=== PATIENT | male | born 1950 | race Caucasian/White ===

== ENCOUNTER 2017-02-18 11:55 | Inpatient (IN) ==
[2017-02-18] MEDS ORDERED: NS 500 ML IV ONE (13:21)
--- NOTE | 2017-02-18 13:52 | Diag Imaging Result Doc PS360 ---
EXAM: FOOT COMPLETE LEFT INDICATION: chronic infection TECHNIQUE: Left foot radiograph, three views. COMPARISON: None available. FINDINGS: There has been amputation of the second and third toes at the MTP joints as well as amputation of the tip of the great toe. There is soft tissue emphysema indicating infection overlying the head of the third metatarsal and between the third and fourth metatarsal heads. There is irregularity at the tip of the fourth and fifth toes that has a more chronic appearance. No definite acute erosion can be identified to indicate acute osteomyelitis by plain radiograph. However, consider nuclear medicine bone scan or MRI if there is high clinical suspicion for osteomyelitis. Otherwise, there are calcaneal bone spurs and small osteophytes at the dorsum of the foot. There is soft tissue edema at the dorsum of the foot. IMPRESSION: Soft tissue edema with subcutaneous gas involving the forefoot as described indicating cellulitis. No definite radiographic evidence of osteomyelitis is appreciated. However, there are no prior studies available for comparison. Please see above discussion. Electronically signed by Zachary Patten 02/18/2017 1:50 PM
[2017-02-18] MEDS ORDERED: ZOSYN 3.375 GM/NS 3.375 GM/50 ML IVPB IV ONE (14:06)
--- NOTE | 2017-02-18 15:04 | PROVIDER DOCUMENTATION ---
This chart was entered by Austin Granda Scribmukul, acting as scribe for Aline Caal MD. HPI-Rash/Wound/ReCheck - General Chief Complaint: Post Op Complaint Stated Complaint: LEFT FOOT /TOE PAIN,DIABETIC Time Seen by Provider: 02/18/17 13:10 Source: patient Allergies/Adverse Reactions: Allergies Allergy/AdvReac Type Severity Reaction Status Date / Time No Known Allergies Allergy Verified 02/18/17 14:35 Home Medications: Home Medication List Medication Instructions Recorded Confirmed Last Taken Type Carvedilol 5 mg PO DAILY 02/06/17 02/18/17 02/18/17 07:30 History Insulin Detemir [Levemir] 30 unit SUBQ BID 02/06/17 02/18/17 02/18/17 08:00 History LISINOpril [Prinivil] 20 mg PO DAILY 02/06/17 02/18/17 02/17/17 19:00 History LOVAstatin [Mevacor] 20 mg PO DAILY 02/06/17 02/18/17 02/17/17 19:00 History Metformin [Glucophage] 500 mg PO BID CC 02/06/17 02/18/17 02/18/17 07:30 History - History of Present Illness-Dermatology Nature of Presenting Problem: Patient is a 66 y/o M that presents with wound to left foot( 2nd and 3rd toes). patient had amputation to those toes in December, since he has been on antibiotics for infection. Over the past few days he has ran a fever and has had confusion/ ams at times. He reports bleeding to wound. Reports swelling and redness to foot. Location: reports: lower extremity (left foot) Quality: reports: painful Severity: reports: moderate Onset/Duration: reports: gradual, other (one month) Timing: reports: still present, constant Context/Associated Symptoms: reports: incised wound, fever Locality of Occurance: Home Similar Symptoms Previously?: Yes Recently seen or treated by another doctor?: Yes Review of Systems - Adult - REVIEW OF SYSTEMS - ADULT Constitutional: reports: chills, fever Eyes: reports: no symptoms reported Ears, Nose, Mouth & Throat: denies: ear discharge, ear pain, sinus problem, throat pain, throat swelling Cardiovascular: denies: chest pain, palpitations, syncope Respiratory: denies: cough, shortness of breath, wheezing Gastrointestinal: reports: no symptoms reported Genitourinary: denies: dysuria, frequency, hematuria Musculoskeletal: denies: back pain, neck pain Integumentary: reports: skin sores/ulcer. denies: itching Neurological: reports: other (AMS). denies: dizziness/vertigo, headache/ migraines Psychiatric: reports: no symptoms reported Endocrine: reports: no symptoms reported Hematologic/Lymphatic: reports: no symptoms reported Allergic/Immunologic: reports: no symptoms reported All Other Systems: Reviewed and Negative Past History - Adult - PAST MEDICAL HISTORY-ADULT Review of Records: reports: Old Records Reviewed, Nursing Assessment Review, Medications Reviewed Cardiovascular: reports: CAD, HTN Neurological: reports: other (neuropathy) Endocrine/Immune: reports: Diabetes - PRIOR SURGERIES/PROCEDURES Surgical/Procedure History: reports: CABG, hernia repair, other (RIGHT BKA, left 2nd and 3rd toe amputation) - IMMUNIZATION STATUS Childhood Immunizations: See Nurse Assessment Flu Vaccine: See Nurse Assessment - FAMILY HISTORY Family History: reviewed, not pertinent - SOCIAL HISTORY Smoking: non-smoker Living Situation: family Physical Exam-General - PHYSICAL EXAM-ADULT Initial Vital Signs Reviewed: Yes - CONSTITUTIONAL General Appearance: alert, mild distress - EYES Eyes: PERRL/EOMI, pink conjunctivae - HEAD, EARS, NOSE, MOUTH & THROAT HENMT: normocephalic/atraumatic, moist mucous membranes, normal ENT inspection - NECK Neck: full range of motion, normal inspection - RESPIRATORY Respiratory: lungs clear, normal breath sounds, no respiratory distress, no accessory muscle use - CARDIOVASCULAR Cardiovascular: regular rate, rhythm, no edema, no murmur - MUSCULOSKELETAL Extremity: pelvis stable, erythema (left foot up to ankle), other (right BKA). negative: swelling - SKIN Integumentary: other (left foot redness, open wound to base of 2nd toe on left citlaly plantar side with necrotic tissues noted to it. foul smell coming for wound possible gangrene) - NEUROLOGIC Neurologic: grossly normal, no motor/sensory deficits - PSYCHIATRIC Psych/Mental Status: normal mood/affect, normal thought content, normal thought process, oriented x 3 Progress - PLAN OF CARE/RESULTS Progress/Plan/Lab Results: Vital Signs - 8 hr 02/18/17 12:18 Temperature 100 F H Pulse Rate 85 Respiratory Rate 18 Blood Pressure 164/64 O2 Sat by Pulse Oximetry 99 Orders Category Date Time Status FSBS [Finger Stick Blood Sugar (ED)] DIRECTED Care 02/18/17 13:18 Active IV Insertion ORDERED Care 02/18/17 13:21 Active FOOT COMPLETE LEFT [RAD] Stat Exams 02/18/17 13:22 Completed BLOOD CULTURE [BLDCUL] Stat Lab 02/18/17 13:20 Uncollected CBC WITH ELECTRONIC DIFF [HEME] Stat Lab 02/18/17 13:19 Uncollected CMP [COMPREHENSIVE METABOLIC PANEL] [CHEM] Stat Lab 02/18/17 13:19 Uncollected WOUND CULTURE INC GRAM STAIN [RM] Stat Lab 02/18/17 13:20 Uncollected 0.9% Sodium Chloride Inj [Ns] 500 ml Med 02/18/17 13:21 Discontinued IV 999 mls/hr Piperacil/Tazobact 3.375 gm/Ns [Zosyn 3.375 gm/Ns] Med 02/18/17 14:06 Discontinued 3.375 gm in 50 ml IV NOW - XRAY 1 XRAY: Left XRAY Study: Foot Impression: Abnormal XRAY Interpretation: soft tiss edema with SQ gas involving to forefoot - CONSULTS/PCP/HOSPITALIST Notification #1 *Consult/PCP/Hospitalist*: Dr.T Mcclain Time Discussed: 14:59 Reason/Comments: possible gangrene foot Consult Disposition: Will see in ED Departure - Departure Time of Disposition Decision: 15:02 DIAGNOSIS: Gangrene of left foot Disposition: ADMITTED INPATIENT 09 Certified Medical Emergency: Emergent Condition: Stable Referrals and Follow-Ups: Jorge Singer [Primary Care Provider] - - Critical Care Note This patient required my direct & personal management of CC.: No This chart was documented by the indicated scribe, (Austin Granda, Scribe) and accurately reflects the services I performed and decisions made by me, Aline Caal MD, as attested by the provider's signature.
[2017-02-18 15:20] LABS: MANUAL DIFF NEEDED? NO
[2017-02-18 15:27] LABS: BASO% 0.2 % (0.0-0.8); EOS# 0.04 X1000 (0.0-0.7); EOS% 0.3 % (0.0-10.0); HEMATOCRIT 36.8 % (42.0-52.0); HEMOGLOBIN 12.4 g/dL (14.0-18.0); IMM GRAN# 0.03 X1000 (0.0-0.04); IMM GRAN% 0.2 % (0.0-0.5); LYMPH# 1.14 X1000 (1.2-3.4); LYMPH% 9.4 % (20.5-51.1); MCH 27.1 PG (27-31); MCHC 33.7 g/dL (33-37); MCV 80.3 FL (81-99); MONO# 0.86 X1000 (0.11-0.59); MONO% 7.1 % (1.7-9.3); MPV 8.8 FL (7.4-10.4); NEUT% 82.8 % (42.2-75.2); PLT 484 X1000 (130-400); RBC 4.58 XMIL (4.7-6.1)
[2017-02-18 15:43] LABS: URINE MICRO REVIEW NEEDED? NO; URINE SOURCE VOIDED
[2017-02-18 15:48] LABS: BILIRUBIN URINE NEGATIVE (NEGATIVE); BLOOD URINE NEGATIVE (NEGATIVE); COLOR YELLOW; GLUCOSE URINE 500 mg/dL (NEGATIVE); LEUKOCYTES URINE NEGATIVE (NEGATIVE); NITRITE URINE NEGATIVE (NEGATIVE); PROTEIN URINE 50 mg/dL (NEGATIVE); SP GRAVITY URINE 1.019; TURBIDITY URINE CLEAR (CLEAR); UR EPITHELIAL CELLS <10 /HPF (<10); URINE BACTERIA NEGATIVE /HPF; URINE RBC <10 /HPF (<10); URINE WBC <10 /HPF (<10); UROBILINOGEN URINE NORMAL (NORMAL)
[2017-02-18 15:50] LABS: AGAP 16; ALBUMIN 3.6 g/dL (3.5-5.0); ALKALINE PHOSPHATASE 478 U/L (32-122); BUN 15 mg/dL (8-22); CALCIUM 9.5 mg/dL (8.8-10.2); CHLORIDE 90 mmol/L (98-107); COSMO 265; GOT 93 U/L (10-34); GPT 127 U/L (10-44); POTASSIUM 4.7 mmol/L (3.5-5.1); SODIUM 128 mmol/L (136-145); TCO2 22 mmol/L (25-35); TOTAL BILIRUBIN 0.34 mg/dL (0.20-1.00); TOTAL PROTEIN 8.3 g/dL (6.3-8.3)
[2017-02-18] MEDS ORDERED: NS 1,000 ML IV ONE (16:29)
[2017-02-18] MEDS: DILAUDID IV ONE ×2 (16:29→16:49)
[2017-02-18] MEDS ORDERED: NS 1,000 ML ONE (16:44)
[2017-02-18] MEDS ORDERED: DIPRIVAN 1% ONE (18:50)
[2017-02-18] MEDS ORDERED: NS 1,000 ML IV SCH ×2 (19:25→20:08)
[2017-02-18] MEDS: DILAUDID ONE ×2 (19:36→19:45)
[2017-02-18 19:57] LABS: HEMOGLOBIN A1C 8.6 % (4.8-6.0)
--- NOTE | 2017-02-18 20:58 | HISTORY AND PHYSICAL ---
REASON FOR ADMISSION: Left foot pain, swelling and discharge. REFERRING PHYSICIAN: Dr. Gunnar Mcclain REASON FOR CONSULTATION: For medical management. HISTORY OF PRESENT ILLNESS: Mr. Betito Mahoney is a 66-year-old man with past history of coronary artery disease, peripheral arterial disease, type 2 diabetes, complicated neuropathy, hypertension, hyperlipidemia. Comes in today complaining of a 2-week history of worsening purulent drainage from his left foot, a 2-day history of fever and chills and a 2-day history of left foot swelling. Also complains about 1-2 weeks history of worsening polyuria, polydipsia, but no blurred vision. No polyphagia. He denies any cardiorespiratory complaints. He was seen by Dr. Gunnar Mcclain, general surgeon and we took him to the OR on account of findings noted on the left foot x-ray that showed soft tissue edema with subcutaneous gas involving the forefoot. I just saw him in recovery and he is only complaining of pain in his left foot which has gotten better with some pain medication. He denies any other complaints referable to the GI, , [facility], [facility] at this point in time. No arthralgias. REVIEW OF SYSTEMS: Other than the aforementioned complaints above, he complains of chronic left foot burning neuropathy-type pain. Twelve system review was also done and positive findings are as per above. ALLERGIES: No known allergies. MEDICATIONS: He takes an aspirin a day, Coreg 3.125 mg daily, Levemir 30 units b.i.d., Prinivil 20 mg daily. Mevacor 20 mg daily, metformin 500 mg b.i.d. SURGICAL HISTORY: He has had 5 abdominal hernia surgeries, a CABG, tonsillectomy, right BKA, cholecystectomy, amputation of the left toes of his foot, including further debridement of his left foot. FAMILY HISTORY: Notable for heart disease and type 2 diabetes in first-degree relatives. SOCIAL HISTORY: He does not smoke, drink, or use drugs per his daughter. LABORATORY WORK: Chest x-ray findings noted above and there was no mention of osteomyelitis in the films. Other tests include white count was 12,000, hemoglobin and hematocrit 12 and 36, platelets 484,000, 82% neutrophils. Sodium is 128, anion gap is 16, bicarb 22, BUN 15, creatinine 1.1, glucose 231. A1c 8.6, AST 93, ALT 127. Alkaline phosphatase 478. Urinalysis clean. Lactate 1. PHYSICAL EXAMINATION: VITAL SIGNS: Blood pressure postop is 161/60, heart rate 79, respirations 13, temperature is 100.2 degrees, 96% on room air. GENERAL: He is a middle-aged man who is not in acute distress. He is alert and oriented x3. Normal mood and affect. HEENT: Head is normocephalic, atraumatic. Eyes, BRITNI, EOMI. He is anicteric and not pale. ENT and oropharyngeal exam are grossly normal. There is moist mucosa. No central cyanosis noted. NECK: Supple. No JVD or carotid bruit. No thyromegaly. CHEST: Clear to auscultation. Good air entry both lung paula. CARDIOVASCULAR: First and second heart sounds heard. No gallops, murmurs or rubs. Rhythm is regular. ABDOMEN: Full, soft, nontender. No masses or megaly. Bowel sounds slightly hypoactive. RECTAL: Examination deferred at this time. EXTREMITIES: He has a right BKA. Skin overlying the stump is intact. No breakdown noted. Left lower extremity is heavily dressed. Posterior tibialis pulse is barely palpable, but he has a very good left femoral pulse. There are areas of erythema and warmth in the left chaudhari consistent with cellulitis. Not tender to touch. No edema. Could not visualize the toes because of the dressing. I could not appreciate any pulses on the dorsalis pedis for the same reason. NEUROLOGICAL: No focal deficits noted. SKIN: See above, but otherwise grossly normal. MUSCULOSKELETAL: See above, but grossly normal. ASSESSMENT: 1. Left diabetic foot infection. 2. Coronary artery disease with probable peripheral artery disease. 3. Hypertension. 4. Hyperlipidemia. 5. Type 2 diabetes, uncontrolled with neuropathy. A1c 8.6. PLAN: At this time, I will continue with Lantus and a sliding scale for this patient. He is definitely lacking postprandial control of his blood sugars and will benefit from starting on Januvia or as sulfonylurea when he is discharged to get better sugar control. We will slowly add elevated doses of his Levemir while he is here with a goal to get his a.m. blood sugars at least less than 140. Continue his blood pressure medications as outlined above. I resumed his aspirin due to the fact that he has a significant cardiovascular disease. His lipid panel is abnormal I will strongly recommend changing him from Mevacor to a more potent statin i.e. Lipitor or Crestor. Aggressively hydrate patient to head off any further fluid losses from polyuria secondary to poorly controlled diabetes. I would like to thank Dr. Mcclain for this consult, my colleague who is following. Deep venous thrombosis prophylaxis per Dr. Mcclain. Continue antibiotics i.e. Zosyn and await cultures. cc: MD Jacky Lubin MD Joel Alonzo Powell, Jr, MD
[2017-02-18] MEDS ORDERED: ZOFRAN IV PRN (21:08)
[2017-02-18] MEDS ORDERED: VANCOMYCIN IV PER PHARMACY MISC SCH (21:08)
[2017-02-18] MEDS ORDERED: INSULIN PEN NEEDLES ONE (22:21)
[2017-02-18] MEDS: ASPIRIN PO SCH (22:22)
[2017-02-18] MEDS: HUMALOG SUBQ SCH (22:23)
[2017-02-18] MEDS: COREG PO SCH (22:23)
[2017-02-18] MEDS: LEVEMIR SUBQ SCH (22:24)
[2017-02-18] MEDS: ZOSYN 3.375 GM/NS 3.375 GM/50 ML IVPB IV SCH (22:45)
--- NOTE | 2017-02-18 23:44 | CONSULTATION ---
DATE OF CONSULTATION: 02/18/2017 HISTORY OF PRESENT ILLNESS: This 66-year-old male with poorly controlled diabetes who is known to me from my office who was seen last week. He had an amputation approximately week and half ago in [place] by a surgeon there of his #2 and 3 toes on his left foot. These wounds were closed. He developed some drainage last week with the early development of a wound here. He was on antibiotics but he developed progression some subjective fevers, altered mental status this week prompted his representation. They noted increasing purulent drainage from his foot. Of note he has had a right below-knee amputation. PAST MEDICAL HISTORY: 1. Diabetes. 2. Hypertension. 3. peripheral vascular disease. SURGICAL HISTORY: Right below-knee amputation. SOCIAL HISTORY: History of smoking has quit recently though. No alcohol. FAMILY HISTORY: Negative. REVIEW OF SYSTEMS: Ten point negative except for what is mentioned in HPI. PHYSICAL EXAMINATION: Vital Signs: Temperature is 100, pulse 85, blood pressure 164/64, O2 saturation 99% on room air. General: He is alert, no acute distress. HEENT: No scleral icterus. Cardiovascular: Normal rate, regular rhythm. Pulmonary: No increased work of breathing. Abdomen: Soft, nontender, nondistended. Extremities: Left foot has a partial amputation of his 1st toe and partial amputation of the 2nd and 3rd toe. There is a necrotic wound at the previous amputation site that is draining purulent material. The 4th toe is ecchymotic and is nonfunctional, the 5th toe seems well perfused. There is some cellulitis extending up to level the midfoot but there is no cellulitis of the leg and foot otherwise warm, seems well perfused. Right below-knee prosthetic is in place. Neurologic: He has received some pain medicine but he is alert and oriented at this point. LABS: White count 12, hematocrit 36, platelets 484,000. Creatinine is 1.1, sodium is low at 128, potassium 4.7, chloride 90, CO2 22, bilirubin 0.34, AST, ALT 93, 127, alkaline phosphatase 478, albumin is 3.6. ASSESSMENT AND PLAN: This is a 66-year-old male with poorly controlled diabetes and history of nonhealing wounds of his foot. He has had necrosis requiring toe amputations recently in [place]. He presents now with ongoing necrosis and infection of his previous surgical site. Risks, benefits, alternatives discussed with patient. I have recommended amputation 4th toe with debridement of the midfoot which will likely include some at least partial transmetatarsal amputation of these digits and leave the wound open with the ongoing wound care. He understands that there is possibility of loss of all the toes and a complete transmetatarsal amputation but we are doing this with the goal of preserving his foot. He understands prolonged nature of wound healing and likely require wound VAC and other surgeries in the future. Will obtain formal segmental Doppler exams of his left foot although his foot seems clinically perfused. Will check this while he is inpatient. I recommend admission to medicine service given his electrolyte derangements, hyperglycemia. From my standpoint he has received Zosyn, would recommend addition of vancomycin pending tissue cultures which will obtain today. Will go to the operating room konstantin. cc: Jacky Mcclain MD MTDMichael
[2017-02-19] MEDS: MORPHINE IV PRN ×3 (00:12→18:56)
[2017-02-19] MEDS ORDERED: VANCOMYCIN 2,000 MG in NS 500 ML IV ONE (01:00)
[2017-02-19] MEDS: ZOSYN 3.375 GM/NS 3.375 GM/50 ML IVPB IV SCH ×4 (04:03→21:03)
--- NOTE | 2017-02-19 04:42 | OPERATIVE NOTE ---
PROCEDURE DATE: 02/18/2017 PREOPERATIVE DIAGNOSIS: Infected necrosis of a previous diabetic foot wound of the left foot. POSTOPERATIVE DIAGNOSIS: Infected necrosis of a previous diabetic foot wound of the left foot. PROCEDURE PERFORMED: Transmetatarsal amputation of the 2nd, 3rd, and 4th toes of the left foot. COMPLICATIONS: None. ESTIMATED BLOOD LOSS: 20 mL. SPECIMENS: Transmetatarsal amputation of the 2nd, 3rd, and 4th toes. INDICATION: A 66-year-old male who underwent, approximately 2 weeks ago, partial amputation of the 2nd and 3rd toes on his left foot. He had a previous partial amputation of the left 1st toe and a right below-knee amputation. He has had development of a wound here that was seen last week with no obvious signs of infection but developed purulence and increasing necrosis of this wound. Excisional debridement was indicated. FINDINGS: There was purulence and necrotic tissue extending back to the metatarsal heads. These also were necrotic. This involved the 2nd, 3rd, and 4th toes. The 2nd and 3rd toes had been previously partially amputated. The 4th toe was intact but was necrotic and infected. OPERATIVE NOTE: Risks, benefits, and alternatives were discussed with the patient. He consented to the procedure. The surgical site was marked. He was seen in the preoperative area and surgery to be performed was confirmed. Scheduled antibiotics were administered. He was taken to the operating room and placed in the supine position. General anesthesia was induced without complication. All bony prominence were padded. His left foot was prepped with Betadine solution and draped in the usual fashion. After time-out was performed, we confirmed the surgical site. All agreed. An elliptical incision around the residual 2nd and 3rd digits and the 4th toe was made. We carried this down to the level of the metatarsal joint and excised these digits in their entirety. It became apparent that there was osteomyelitis and moth eaten of the distal metatarsals of the 2nd, 3rd, and 4th toes. Using bone cutters and rongeur forceps, we did debride this back to more healthy, non-moth eaten calcaneus bone at the level of the mid metatarsal. Debrided back necrotic tissue back to healthy bleeding tissue, although the bleeding was less than you would expect. After irrigating the wound, we confirmed there was no residual purulence or undrained collections. We packed the wound with Vashe, Kerlix, and wrapped loosely with dry Kerlix and Corbin wrap. He tolerated the procedure well. There was no identified complication. Counts Correct x2. He was awoken and transferred to PACU in good condition. I spoke with the family. We will admit him. Continue him on IV antibiotics, wound dressing changes, and peripheral vascular exam in the morning. cc: Jacky Mcclain MD MTDD
[2017-02-19] MEDS: HUMALOG SUBQ SCH ×4 (06:03→21:03)
[2017-02-19] MEDS: PRILOSEC PO SCH (06:22)
[2017-02-19 06:41] LABS: MANUAL DIFF NEEDED? NO
[2017-02-19 06:55] LABS: BASO% 0.2 % (0.0-0.8); EOS# 0.06 X1000 (0.0-0.7); EOS% 0.7 % (0.0-10.0); HEMATOCRIT 30.2 % (42.0-52.0); HEMOGLOBIN 10.1 g/dL (14.0-18.0); IMM GRAN# 0.02 X1000 (0.0-0.04); IMM GRAN% 0.2 % (0.0-0.5); LYMPH# 0.92 X1000 (1.2-3.4); MCH 27.4 PG (27-31); MCHC 33.4 g/dL (33-37); MCV 82.1 FL (81-99); MONO# 0.72 X1000 (0.11-0.59); MONO% 8.6 % (1.7-9.3); MPV 8.6 FL (7.4-10.4); NEUT% 79.3 % (42.2-75.2); PLT 364 X1000 (130-400); RBC 3.68 XMIL (4.7-6.1)
[2017-02-19 07:00] LABS: AGAP 11; BUN 11 mg/dL (8-22); CALCIUM 8.1 mg/dL (8.8-10.2); CHLORIDE 98 mmol/L (98-107); COSMO 267; POTASSIUM 4.5 mmol/L (3.5-5.1); SODIUM 131 mmol/L (136-145); TCO2 22 mmol/L (25-35)
[2017-02-19] MEDS ORDERED: LR 1,000 ML ONE (07:08)
[2017-02-19] MEDS ORDERED: XYLOCAINE-MPF 2% ONE (07:08)
[2017-02-19] MEDS ORDERED: ZOFRAN ONE (07:08)
[2017-02-19] MEDS: ASPIRIN PO SCH (08:47)
[2017-02-19] MEDS: COREG PO SCH ×2 (08:47→21:03)
[2017-02-19] MEDS: PRINIVIL PO SCH (08:47)
[2017-02-19] MEDS: LEVEMIR SUBQ SCH ×2 (08:49→21:02)
[2017-02-19] MEDS: MEVACOR PO SCH (08:51)
--- NOTE | 2017-02-19 11:37 | PROGRESS NOTE ---
DATE: 02/19/2017 SUBJECTIVE: Some pain in his foot but overall feels okay. OBJECTIVE: No fevers overnight. Temperature 98.5 degrees, pulse 72, blood pressure 136/65. Left foot: Dressing is clean, dry, and intact. There is no swelling or erythema extending up the foot. LABORATORY DATA: White count 8, hematocrit is 30. Creatinine 0.9, glucose 208. ASSESSMENT AND PLAN: A 66-year-old male, status post completion amputation of 2nd, 3rd, and 4th toes with debridement of the metatarsal head for infected necrosis of his foot. I have ordered LEAs for him today. Will follow up these and may need ultimately a CTA. He has had angioplasties and atherectomies in bilateral lower extremities in the past, so, I suspect he has developed some recurrent issue here. In the meantime, we will re-examine his wounds with Nadja Myles later, but will need wet-to-dry dressings with Vashe gauze at least twice daily going forward and will ultimately plan to wound VAC these wounds. I appreciate the hospitalist's help with this gentleman. cc: MD Adolfo Chaney MD MTDD
[2017-02-20] MEDS: VANCOMYCIN 1,800 MG in NS 500 ML IV SCH (00:26)
[2017-02-20] MEDS: ZOSYN 3.375 GM/NS 3.375 GM/50 ML IVPB IV SCH ×4 (03:27→21:11)
[2017-02-20] MEDS: PRILOSEC PO SCH (06:31)
[2017-02-20] MEDS: HUMALOG SUBQ SCH ×4 (06:32→21:12)
[2017-02-20] MEDS: ASPIRIN PO SCH (09:10)
[2017-02-20] MEDS: COREG PO SCH ×2 (09:10→21:12)
[2017-02-20] MEDS: LEVEMIR SUBQ SCH ×2 (09:10→21:11)
[2017-02-20] MEDS: MEVACOR PO SCH (09:10)
[2017-02-20] MEDS: PRINIVIL PO SCH (09:10)
[2017-02-20] MEDS: MORPHINE IV PRN ×2 (13:12→20:03)
[2017-02-20] MEDS ORDERED: INSULIN PEN NEEDLES ONE (14:23)
[2017-02-21] MEDS: VANCOMYCIN 1,800 MG in NS 500 ML IV SCH (01:05)
[2017-02-21] MEDS: ZOSYN 3.375 GM/NS 3.375 GM/50 ML IVPB IV SCH ×2 (03:12→09:03)
--- NOTE | 2017-02-21 06:09 | PROGRESS NOTE ---
DATE: 02/21/2017 SUBJECTIVE: The patient is doing okay. Arrangements are being made for him to have a wound VAC placed today. Subjectively, the patient without complaints. No major issues. OBJECTIVE: Vital Signs: Patient is currently afebrile. His vital signs are stable. General Examination: No acute distress. Cardiovascular: Regular rate and rhythm. Lungs: Grossly clear. Abdomen: Soft, nontender, nondistended. Extremities: Dressing in place to the left foot. No major changes to the wound. LABORATORY: None this morning. CULTURES: Enterococcus noted. ASSESSMENT/PLAN: A 66-year-old male, status post amputation of multiple toes by Dr. Mcclain. 1. Status post multiple amputated toes. At this time, we will have wound VAC placed. Hopefully can be discharged once all arrangements are made. cc: MD Adolfo Webber MD
[2017-02-21] MEDS: HUMALOG SUBQ SCH ×4 (06:17→20:53)
[2017-02-21] MEDS: PRILOSEC PO SCH (07:04)
[2017-02-21] MEDS: MEVACOR PO SCH (09:03)
[2017-02-21] MEDS: ASPIRIN PO SCH (09:03)
[2017-02-21] MEDS: COREG PO SCH ×2 (09:04→20:54)
[2017-02-21] MEDS: PRINIVIL PO SCH (09:04)
[2017-02-21] MEDS: LEVEMIR SUBQ SCH ×2 (09:05→20:53)
[2017-02-21] MEDS: MORPHINE IV PRN (09:49)
--- NOTE | 2017-02-21 12:22 | DISCHARGE SUMMARY ---
ADMISSION DATE: 02/18/2017 DISCHARGE DATE: 02/21/2017 HISTORY OF PRESENT ILLNESS: The patient presented with left foot pain, swelling, and some discharge. Dr. Gunnar Mcclain was his surgeon. He is a 66-year-old with a history of coronary artery disease, peripheral arterial disease, diabetes mellitus, type 2, complicated by neuropathy, hypertension, and hyperlipidemia. He came in on 02/18/2017 with complaint of a 2-week history of worsening purulent drainage from his left foot, a 2-day history of fever and chills, history of left foot swelling, and complained of a 1- to 2-week history of worsening pyuria and polydipsia, but no blurred vision and no polyphagia. Denied any cardiorespiratory complaints. He was seen by Dr. uGnnar Mcclain, general surgeon, who took him to the OR on account of findings noted on the left foot x-ray that showed soft tissue edema and subcutaneous gas involving the forefoot. We saw him in recovery and he only complained of pain in the left foot. ALLERGIES: No known drug allergies. PAST SURGICAL HISTORY: He has had 5 abdominal hernia surgeries. He is status post CABG surgery, tonsillectomy, right BKA, cholecystectomy, and amputation of toes of his left foot, including further debridement of his foot was planned. FAMILY HISTORY: Notable for heart disease. SOCIAL HISTORY: He does not smoke or use alcohol or drugs. HOSPITAL COURSE: The patient underwent surgery, with 2nd, 3rd, and 4th toe amputation of metatarsal heads and debridement, and wound cultures grew Enterococcus faecalis group D that was sensitive to ampicillin, vancomycin, and penicillin G. The patient remained afebrile postoperatively. Blood sugar was well controlled. It was felt he could go home on 02/21/2017. DISCHARGE MEDICATIONS: Aspirin 325 mg a day, Coreg 6.25 mg b.i.d., Levemir 25 units subcutaneously b.i.d., Prinivil 20 mg a day, and Mevacor 20 mg a day. He was getting vancomycin IV and Zosyn 3.375 mg IV q.6 hours. I think I will put him on ampicillin 500 mg 4 times a day for another 10 days. FOLLOWUP: With Dr. Mcclain. cc: Adolfo Gay MD
[2017-02-21] MEDS ORDERED: AMPICILLIN 1 GM/NS 1 GM/50 ML IVPB IV ONE (13:56)
--- NOTE | 2017-02-21 14:29 | DISCHARGE SUMMARY ---
ADMISSION DATE: 02/18/2017 DISCHARGE DATE: 02/21/2017 ADDENDUM: Of note, I talked to Dr. Mcclain. Debridement went down to the bone and I feel like we need to treat this as if it is osteomyelitis with 6 weeks of probably IV vancomycin. I will get Dr. Shepherd involved and see if we can get this setup so he can go home and do this as an outpatient. cc: Adolfo Gay MD
[2017-02-21 15:00] LABS: INR 1.02; PROTIME 10.7 Seconds (9.2-11.7)
--- NOTE | 2017-02-21 15:00 | CONSULTATION ---
DATE OF CONSULTATION: 02/21/2017 CONCLUSION: The patient has acute osteomyelitis and necrosis of the left foot. He has undergone a transmetatarsal amputation of the 2nd, 3rd and 4th toes of the left foot performed by Dr. Mcclain. Cultures taken from the foot on 2 separate sites both grew Enterococcus. RECOMMENDATIONS: I would suggest treating the patient with IV ampicillin in a dose of 12 g to be given over 24 hours daily for a total of 6 weeks. I have also requested that a PICC be placed. I plan to see the patient back in the office in 3 weeks and then again at 6 weeks, at which time we will stop the IV antibiotic and either not put the patient on any antibiotic or if one is needed hopefully it can be done by giving it p.o. DISCUSSION: The patient had a very severe infection of his left foot. He developed gangrene of the foot. He had amputation of the toes as mentioned above. At surgery the osteomyelitis of the bone was seen and Dr. Mcclain debrided all the necrotic tissue and also the osteomyelitis which he has described as moth-eaten of the distal metatarsals of the 2nd, 3rd and 4th toes. He debrided back the bone to more healthy non moth-eaten bone. Discussion as mentioned above, patient has severe infection of his foot. He eventually was put in the hospital and started on antibiotics and then unfortunately had to have surgery as mentioned above. The patient's laboratory studies show a CBC with a white count of 8340, hemoglobin 10.1, and platelet count 394,000. Creatinine 0.9. GFR is greater than 60. Two cultures taken from the patient's foot are growing Enterococcus. The patient had been receiving vancomycin and Zosyn since admission to the hospital. PAST MEDICAL HISTORY/REVIEW OF SYSTEMS: Eyes and ears: He denies difficulty hearing or seeing. Neck: No stiffness. Respiratory: No cough or shortness of breath. Cardiac: No chest pain or palpitations. GI: No nausea, vomiting, or diarrhea. : No dysuria or flank pain. Neurologic: No seizures. No loss of motor or sensory function. Endocrine: Patient is a diabetic but he does not have thyroid disease. Hematologic: He does not have a history of anemia or bleeding tendency. Bones, joints, muscles: As mentioned above, the patient has a severe infection of his left foot and previously he had to have amputation of the right leg because of gangrene and infection. PREVIOUS HOSPITALIZATIONS AND OPERATIONS: He has had a right [id number]-hdm-[id number] amputation, coronary artery bypass grafting, cholecystectomy and tonsillectomy. MEDICAL DISEASES: Positive for diabetes mellitus, hypertension, and coronary artery disease, hyperlipidemia. INFECTIOUS DISEASE HISTORY: Positive for UTI and infected right foot. FAMILY HISTORY: Positive for cancer, diabetes mellitus, and hypertension. SOCIAL HISTORY: [place] He does not drink or smoke. He does not abuse drugs. He is . He has dogs and a cat for pets. He works in sales. ALLERGIES: His chart lists no known allergies. HOME MEDICATIONS: Include the following: Metformin, lovastatin, lisinopril, insulin, carvedilol and ampicillin. PHYSICAL EXAMINATION: The temperature is 97.9 degrees, pulse 71, respirations, blood pressure 163/76. Patient's weight is listed as 199 pounds.Generally: This is an obese, elderly male. He is in no acute distress. Head, eyes, ears, nose, and throat: He can hear my spoken words and see near objects. No drainage is noted from the nose or ears. Neck: No meningismus. Thorax: No increased AP diameter of the chest. Lungs: Clear to auscultation. Cardiovascular: Heart rate at times it appeared regular but at other times it appeared irregular. Abdomen: Soft and not tender. Extremities: Patient has a right [id number]-wcy-jqta amputation. His left foot has a large dressing around it. The patient has had surgery on the foot. Neurologic: Patient is alert. He can move his extremities. There is no tremor. His sensation is intact. Integument: No rash noted. Thank you for the consult. cc: MD Adolfo Gao MD
[2017-02-21] MEDS ORDERED: NS 250 ML ONE (15:51)
[2017-02-21] MEDS: AMPICILLIN 2 GM/NS 2 GM/100 ML IVPB IV SCH (20:52)
[2017-02-22] MEDS: AMPICILLIN 2 GM/NS 2 GM/100 ML IVPB IV SCH ×2 (03:11→08:45)
[2017-02-22] MEDS: PRILOSEC PO SCH (06:14)
[2017-02-22] MEDS: HUMALOG SUBQ SCH (06:15)
--- NOTE | 2017-02-22 07:03 | PROGRESS NOTE ---
DATE: 02/22/2017 SUBJECTIVE: Patient doing okay. He had his wound VAC placed. He is doing well. No major issues. He has also had a PICC line placed. OBJECTIVE: Vital Signs: Patient is currently afebrile. His vital signs are stable. General: No acute distress. Cardiovascular: Regular rate and rhythm. Lungs: Grossly clear. Abdomen: Soft, nontender, nondistended. Extremities: Wound VAC in place to the left lower extremity. LABORATORIES: None. Cultures: Enterococcus noted. ASSESSMENT/PLAN: This is a 66-year-old male with status post amputation of multiple toes by Dr. Mcclain. Status post multiple amputated toes: At this time, he can go home with his wound vacuum-assisted closure once everything is arranged for him to have home antibiotics. From a surgical point of view, he can be discharged soon. cc: MD Adolfo Webber MD
--- NOTE | 2017-02-22 07:30 | VASCULAR LAB ---
PROCEDURE NAME: Arterial Bilateral Legs - 02/20/2017 REFERRING PHYSICIAN: Jacky Mcclain MD BUSINESS ATTORNEY: Reji Esposito, Trell INDICATIONS: Ulcer, left foot; ICD-10 is L97.509. The patient has a history of a right [id number] amputation. He also has toe amputations involving his left foot. He has undergone angioplasty of the peripheral arteries both right lower extremity and left lower extremity. He has had coronary artery bypass grafting. He is a diabetic and has high blood pressure. He is not smoking. FINDINGS: Systolic brachial blood pressure on the right is 171 mmHg, on the left 173 mmHg. Right high thigh is greater than 200; left high thigh is greater than 200. Right low thigh is 180 mmHg; left low thigh is 203 mmHg. Left calf 131 mmHg. Left ankle 140 mmHg. The left ankle-brachial index at rest is 0.81. There are good pulse waveforms throughout the length of the left lower extremity. INTERPRETATION: There is good blood flow to the amputation site, right lower extremity. There are good pulse waveforms throughout the length of the left lower extremity including at the ankle at rest. cc: MD Jacky Hernandez MD
[2017-02-22 08:12] VITALS: BP 158/69
[2017-02-22] MEDS: PRINIVIL PO SCH (08:45)
[2017-02-22] MEDS: MEVACOR PO SCH (08:45)
[2017-02-22] MEDS: COREG PO SCH (08:45)
[2017-02-22] MEDS: LEVEMIR SUBQ SCH (08:45)
[2017-02-22] MEDS: ASPIRIN PO SCH (08:46)
== END 2017-02-22 09:45 | disposition home health service (06) ==
LOC: SUPCPDRO → ED 11:55 → SURHOLD 17:17 → OBSVTOIN 18:56 → 3N 20:44
PROVIDERS: ADMIT Emergency Medicine; ATTEND Surgery

== ENCOUNTER 2017-06-06 19:39 | Inpatient (IN) ==
[2017-06-06 21:44] LABS: MANUAL DIFF NEEDED? NO
[2017-06-06 21:48] LABS: BASO% 0.2 % (0.0-0.8); EOS# 0.19 X1000 (0.0-0.7); EOS% 1.9 % (0.0-10.0); HEMATOCRIT 37.4 % (42.0-52.0); HEMOGLOBIN 12.5 g/dL (14.0-18.0); IMM GRAN# 0.02 X1000 (0.0-0.04); IMM GRAN% 0.2 % (0.0-0.5); LYMPH# 1.67 X1000 (1.2-3.4); LYMPH% 16.3 % (20.5-51.1); MCH 26.3 PG (27-31); MCHC 33.4 g/dL (33-37); MCV 78.7 FL (81-99); MONO# 0.98 X1000 (0.11-0.59); MONO% 9.5 % (1.7-9.3); MPV 8.8 FL (7.4-10.4); NEUT% 71.9 % (42.2-75.2); PLT 367 X1000 (130-400); RBC 4.75 XMIL (4.7-6.1)
[2017-06-06 22:15] LABS: AGAP 11; ALBUMIN 3.9 g/dL (3.5-5.0); ALKALINE PHOSPHATASE 176 U/L (32-122); BUN 14 mg/dL (8-22); CALCIUM 9.4 mg/dL (8.8-10.2); CHLORIDE 94 mmol/L (98-107); COSMO 272; GOT 22 U/L (10-34); GPT 27 U/L (10-44); POTASSIUM 4.2 mmol/L (3.5-5.1); SODIUM 130 mmol/L (136-145); TCO2 25 mmol/L (25-35); TOTAL PROTEIN 7.7 g/dL (6.3-8.3)
[2017-06-06] MEDS ORDERED: VANCOMYCIN 1 GM/NS 1 GM/250 ML IVPB IV ONE (22:44)
[2017-06-06] MEDS ORDERED: HUMULIN R SUBQ ONE (22:56)
[2017-06-06] MEDS ORDERED: ZOFRAN IV ONE (22:56)
[2017-06-06] MEDS ORDERED: MORPHINE IV ONE (22:57)
[2017-06-06] MEDS ORDERED: LOVENOX 1 MG/KG SUBQ ONE (22:59)
[2017-06-06] MEDS ORDERED: HUMULIN R (PARKWAY) ONE (23:03)
[2017-06-07] MEDS ORDERED: PRIMAXIN 500 MG in NS 100 ML IV ONE (01:00)
[2017-06-07] MEDS ORDERED: TORADOL IV ONE (01:05)
[2017-06-07] MEDS ORDERED: DILAUDID IV ONE (01:06)
[2017-06-07] MEDS ORDERED: VANCOMYCIN 1 GM/NS 1 GM/250 ML IVPB IV ONE (02:26)
[2017-06-07] MEDS ORDERED: ZOFRAN IV PRN (02:27)
[2017-06-07] MEDS ORDERED: UNASYN 3 GM/NS 3 GM/100 ML IVPB IV SCH (02:30)
[2017-06-07] MEDS ORDERED: VANCOMYCIN IV PER PHARMACY MISC SCH (02:30)
[2017-06-07] MEDS: NS 1,000 ML IV SCH (03:09)
[2017-06-07] MEDS: LOVENOX SUBQ SCH (05:19)
[2017-06-07] MEDS ORDERED: VANCOMYCIN 1,100 MG in NS 250 ML IV ONE (06:00)
[2017-06-07] MEDS: HUMALOG SUBQ SCH ×4 (06:17→21:04)
[2017-06-07 06:41] LABS: URINE CULTURE NEEDED? NO; URINE MICRO REVIEW NEEDED? NO; URINE SOURCE CLEAN CATCH
[2017-06-07 06:47] LABS: BILIRUBIN URINE NEGATIVE (NEGATIVE); BLOOD URINE TRACE (NEGATIVE); COLOR YELLOW; GLUCOSE URINE >1000 mg/dL (NEGATIVE); LEUKOCYTES URINE NEGATIVE (NEGATIVE); NITRITE URINE NEGATIVE (NEGATIVE); PH URINE 5.5; PROTEIN URINE 50 mg/dL (NEGATIVE); SP GRAVITY URINE 1.026; TURBIDITY URINE CLEAR (CLEAR); UROBILINOGEN URINE NORMAL (NORMAL)
[2017-06-07 06:48] LABS: UR EPITHELIAL CELLS <10 /HPF (<10); URINE BACTERIA NEGATIVE /HPF; URINE RBC <10 /HPF (<10); URINE WBC <10 /HPF (<10)
[2017-06-07 06:59] LABS: INR 0.98; PROTIME 10.3 Seconds (9.2-11.7)
[2017-06-07 07:04] LABS: HEMOGLOBIN A1C 8.5 % (4.8-6.0)
[2017-06-07] MEDS: ASPIRIN EC PO SCH (10:11)
[2017-06-07] MEDS: LEVEMIR SUBQ SCH ×2 (10:11→20:56)
[2017-06-07] MEDS: ZOSYN 3.375 GM in NS 50 ML IV SCH ×3 (10:12→21:01)
[2017-06-07] MEDS: DILAUDID IV PRN ×5 (11:31→23:35)
[2017-06-07] MEDS ORDERED: DIPRIVAN 1% ONE (15:12)
[2017-06-07] MEDS ORDERED: VERSED ONE (15:26)
[2017-06-07] MEDS ORDERED: FENTANYL ONE (15:48)
[2017-06-07] MEDS: TYLENOL PO PRN (18:50)
[2017-06-07] MEDS: COREG PO SCH (20:55)
[2017-06-07] MEDS: MEVACOR PO SCH (20:56)
[2017-06-07] MEDS: PRINIVIL PO SCH (20:56)
[2017-06-08] MEDS: NS 1,000 ML IV SCH (01:10)
[2017-06-08] MEDS: VANCOMYCIN 1,600 MG in NS 250 ML IV SCH ×3 (01:10→21:06)
[2017-06-08] MEDS: ZOSYN 3.375 GM in NS 50 ML IV SCH ×3 (04:51→19:04)
[2017-06-08] MEDS: LOVENOX SUBQ SCH (06:49)
[2017-06-08] MEDS: DILAUDID IV PRN ×5 (06:51→22:59)
[2017-06-08] MEDS: HUMALOG SUBQ SCH ×4 (06:52→21:11)
[2017-06-08 07:00] LABS: MANUAL DIFF NEEDED? NO
[2017-06-08 07:15] LABS: BASO% 0.3 % (0.0-0.8); EOS# 0.24 X1000 (0.0-0.7); EOS% 3.9 % (0.0-10.0); HEMATOCRIT 32.8 % (42.0-52.0); HEMOGLOBIN 10.7 g/dL (14.0-18.0); LYMPH# 1.02 X1000 (1.2-3.4); LYMPH% 16.7 % (20.5-51.1); MCH 26.3 PG (27-31); MCHC 32.6 g/dL (33-37); MCV 80.6 FL (81-99); MONO# 0.47 X1000 (0.11-0.59); MONO% 7.7 % (1.7-9.3); MPV 8.8 FL (7.4-10.4); NEUT% 71.4 % (42.2-75.2); PLT 336 X1000 (130-400); RBC 4.07 XMIL (4.7-6.1)
[2017-06-08 07:40] LABS: AGAP 6; ALBUMIN 2.9 g/dL (3.5-5.0); ALKALINE PHOSPHATASE 136 U/L (32-122); BUN 11 mg/dL (8-22); CALCIUM 8.9 mg/dL (8.8-10.2); CHLORIDE 100 mmol/L (98-107); COSMO 277; GOT 17 U/L (10-34); GPT 18 U/L (10-44); POTASSIUM 4.3 mmol/L (3.5-5.1); SODIUM 137 mmol/L (136-145); TCO2 31 mmol/L (25-35); TOTAL BILIRUBIN 0.29 mg/dL (0.20-1.00)
[2017-06-08] MEDS ORDERED: INSULIN PEN NEEDLES ONE (07:50)
[2017-06-08] MEDS: ASPIRIN EC PO SCH (12:40)
[2017-06-08] MEDS: PRINIVIL PO SCH (12:40)
[2017-06-08] MEDS: LEVEMIR SUBQ SCH ×2 (12:45→21:10)
[2017-06-08] MEDS: TYLENOL PO PRN (20:55)
[2017-06-08] MEDS: MEVACOR PO SCH (21:10)
[2017-06-08] MEDS: COREG PO SCH (21:12)
[2017-06-09] MEDS: ZOSYN 3.375 GM in NS 50 ML IV SCH ×4 (01:45→20:38)
[2017-06-09] MEDS: DILAUDID IV PRN ×4 (01:45→20:37)
[2017-06-09] MEDS: LOVENOX SUBQ SCH (06:17)
[2017-06-09] MEDS: HUMALOG SUBQ SCH ×4 (06:22→20:48)
[2017-06-09] MEDS: PRINIVIL PO SCH (09:53)
[2017-06-09] MEDS: ASPIRIN EC PO SCH (09:54)
[2017-06-09] MEDS: LEVEMIR SUBQ SCH ×2 (09:54→20:38)
[2017-06-09] MEDS: NORCO-10 PO PRN ×2 (10:48→14:47)
[2017-06-09] MEDS: VANCOMYCIN 1,600 MG in NS 250 ML IV SCH (17:22)
[2017-06-09] MEDS: COREG PO SCH (20:38)
[2017-06-09] MEDS: MEVACOR PO SCH (20:38)
[2017-06-10] MEDS: DILAUDID IV PRN ×3 (00:17→20:02)
[2017-06-10] MEDS: ZOSYN 3.375 GM in NS 50 ML IV SCH ×3 (03:03→14:35)
[2017-06-10] MEDS: VANCOMYCIN 1,600 MG in NS 250 ML IV SCH (03:38)
[2017-06-10] MEDS: LOVENOX SUBQ SCH (06:04)
[2017-06-10] MEDS: HUMALOG SUBQ SCH ×4 (06:04→21:26)
[2017-06-10] MEDS: ASPIRIN EC PO SCH (08:21)
[2017-06-10] MEDS: LEVEMIR SUBQ SCH ×2 (08:21→20:03)
[2017-06-10] MEDS: PRINIVIL PO SCH (08:21)
[2017-06-10] MEDS: NORCO-10 PO PRN ×2 (10:48→18:26)
[2017-06-10] MEDS ORDERED: DULCOLAX PR PRN (13:44)
[2017-06-10] MEDS: COLACE PO SCH ×2 (14:37→20:02)
[2017-06-10] MEDS: LACTULOSE PO SCH ×2 (14:38→20:02)
[2017-06-10] MEDS ORDERED: INSULIN PEN NEEDLES ONE (15:12)
[2017-06-10] MEDS ORDERED: ROCEPHIN 2 GM in NS 50 ML IV SCH (18:00)
[2017-06-10] MEDS: MEVACOR PO SCH (20:02)
[2017-06-10] MEDS: COREG PO SCH (20:02)
[2017-06-11] MEDS: HUMALOG SUBQ SCH ×2 (06:01→11:27)
[2017-06-11] MEDS: LOVENOX SUBQ SCH (06:01)
[2017-06-11 07:37] VITALS: BP 167/71
[2017-06-11] MEDS: COLACE PO SCH (09:41)
[2017-06-11] MEDS: LACTULOSE PO SCH (09:41)
[2017-06-11] MEDS: ASPIRIN EC PO SCH (09:41)
[2017-06-11] MEDS: PRINIVIL PO SCH (09:41)
[2017-06-11] MEDS: LEVEMIR SUBQ SCH ×2 (09:41→11:27)
== END 2017-06-11 14:30 | disposition home or self-care (01) ==
LOC: P.ED 19:39 → SUATTDRO 06-07 00:14 → 3N 06-07 00:14
PROVIDERS: ATTEND Emergency Medicine